=== PATIENT | male | born 1965 | race Caucasian/White ===

== ENCOUNTER 2018-09-18 07:16 | Day surgery (SDC) | payer BC ==
[~2018-09-18 07:16] MED LIST: Lactated Ringers 1,000 ML IV SCH; ceFAZolin 2 GM in Premix Bag 1 BAG IV ONE
[2018-09-18] MEDS ORDERED: Midazolam 1 MG/ML 2 ML SDV IV ONE (07:17)
[2018-09-18] MEDS ORDERED: Propofol 200 MG/20 ML SDV IV ONE (07:17)
[2018-09-18] MEDS ORDERED: Ondansetron 4 MG/2 ML SDV IVPUSH ONE (07:17)
[2018-09-18] MEDS ORDERED: Lidocaine 1% PF 2 ML SDV INJECT ONE (07:17)
[2018-09-18] MEDS ORDERED: Neostigmine Methylsulfate 10 MG/10 ML MDV IVPUSH ONE (07:17)
[2018-09-18] MEDS ORDERED: Ropivacaine 0.5% 5 MG/ML 30 ML SDV INJECT ONE (07:17)
[2018-09-18] MEDS ORDERED: Lactated Ringers 1,000 ML IV ONE (07:17)
[2018-09-18] MEDS ORDERED: Lidocaine 2% 100 MG/5 ML Syringe IVPUSH ONE (07:17)
[2018-09-18] MEDS ORDERED: Ketorolac 30 MG/ML SDV IVPUSH ONE (07:17)
[2018-09-18] MEDS ORDERED: Glycopyrrolate 0.2 MG/ML 5 ML MDV IV ONE (07:17)
[2018-09-18] MEDS ORDERED: Rocuronium 100 MG/10 ML MDV IV ONE (07:17)
[2018-09-18] MEDS ORDERED: fentaNYL 100 MCG/2 ML SDV IV ONE (07:17)
[2018-09-18] MEDS ORDERED: Lactated Ringers 1,000 ML IV SCH (07:30)
[2018-09-18] MEDS ORDERED: ceFAZolin 2 GM in Premix Bag 1 BAG IV ONE (09:00)
[2018-09-18] MEDS ORDERED: Bupivacaine 0.5%/EPINEPHrine 1:200,000 50 ML MDV INJECT ONE (09:37)
[2018-09-18] MEDS ORDERED: HYDROmorphone 2 MG/ML SDV IV ONE (11:26)
[2018-09-18] MEDS ORDERED: Dexamethasone 4 MG/ML 5 ML MDV IVPUSH ONE (11:26)
--- NOTE | 2018-09-18 12:36 | PCM.SN ---
- Free Text/Narrative Note: ANESTHESIA PAIN SERVICE Date: 09/18/2018 Time: 08 to 0850 Preoperative Dx: Left Shoulder Rotator Cuff Tear Postoperative Rx: Left Shoulder Arthroscopy with Debridement, Open Rotator Cuff Repair Surgeon requests postoperative pain control for this patient. Procedure: Left Interscalene Nerve Block [ISNB] with Ultrasound [U/S] Guidance. Risks and benefits discussed with the patient and sister including block failure , neck discomfort, and Georgiana's Syndrome. All questions answered and a consent was obtained. Monitors: NIBP, HR, I.V. and SpO2. O2 per a nasal cannula at 2L/Min applied. Sedation: Versed 2 mg IV given and the patient was arousable / orientated throughout the procedure. The patient was supine with the HOB elevated 45 degrees. A pre-procedure U/S scan was down locating the left Subclavian Artery and Brachial Plexus with scanning up the neck for the Brachial Plexus chain. Using aseptic technique for the procedure, the neck and shoulder were prepped using ChloraPrep swab and allowed to dry. Using the U/S, I located the needle insertion site and infiltrated it with 2 ml's of 1% Lidocaine plain using a 30 G needle. I then inserted a 22 G 2 inch Stimuplex Ultra 360 Insulated Echogenic Needle with direct U/S visualization. The nerve stimulator was turned on but had an error message. Under U/s guidance, I continued the needle insertion to the plexus and the patient stated he had "Zing's down into his fingers". I pulled back very slightly [resolved] and with divided doses totaling 20 ml's of .5% Naropin , it was injected under direct U/S visualization without patient complaints. No toxicity Sx noted. The patient tolerated this well and stated that his arm "was not there". For pictures please see the Radiology PACS system. Ghassan Lopez CRNA [facility]
[2018-09-18 13:02] VITALS: BP 137/82
--- NOTE | 2018-09-18 13:28 | OR ---
DATE OF OPERATION: 09/18/2018 SURGEON: Hiren Almaguer DO PREOPERATIVE DIAGNOSES: 1. Left shoulder rotator cuff tear. 2. Shoulder impingement. 3. Left shoulder pain. POSTOPERATIVE DIAGNOSES: 1. Left shoulder rotator cuff tear. 2. Shoulder impingement. 3. Left shoulder pain. PROCEDURES PERFORMED: 1. Left shoulder arthroscopy with subacromial decompression. 2. Left mini-open rotator cuff repair, acute. HARD ROCK DRILL OPERATOR: Slitter Operator: Yanni Redd NP. Nurse practitioner, Yanni Redd NP, played an essential role in assisting in this case, helping to position the patient, retract structures as needed, as well as suturing and cutting sutures as indicated. Her presence improved patient's safety and decreased operative time. ANESTHESIA: General endotracheal intubation. FLUID: Lactated Ringer's solution. ESTIMATED BLOOD LOSS: Less than 25 mL. COMPLICATIONS: None. SPECIMEN: None. DISCHARGE DISPOSITION: Stable to PACU. INDICATION FOR THE PROCEDURE: The patient was seen preoperatively in the clinic. He had failed nonoperative treatment for rotator cuff arthropathy and rotator cuff tear. Preoperative imaging confirmed the above-mentioned diagnosis on MRI. Risks and benefits of the procedure were explained to the patient and informed consent was obtained. DETAILS OF PROCEDURE: The patient was seen preoperatively by myself and the Anesthesia staff in the preoperative holding area, where the operative site was marked. He was brought to the operative suite by Anesthesia staff, where a left interscalene block was placed. He also had general anesthesia. All extremities were found to be well padded. He was placed into a beach-chair position with the neck slightly flexed. The left upper extremity was then prepped and draped in a sterile manner. Time-out was called identifying the correct patient, the correct procedure, the correct site, and that antibiotics had been begun within appropriate period of time. A posterior portal was first made using a #11 blade. The trocar was inserted into the glenohumeral joint. The biceps tendon appeared to be in good repair. The glenoid labrum appeared to have a Caesar complex. I did go through an anterior portal, which was first done with a spinal needle and then used the shaver and cautery unit to clean up any synovium. We then entered the subacromial space and performed a bursectomy. I then performed a subacromial decompression using the shaver ablation unit and bur. After this had been accomplished, I then removed my instruments from the shoulder. As much fluid as I could express from the shoulder was then expressed. I then focused on my mini- open rotator cuff repair. A saber incision was made just starting anterior to 1 cm distal to the anterior acromion and then going caudal approximately 4 cm down through the subcutaneous layer. I then controlled any bleeding with Bovie electrocautery and then used a Ray-Sonali to delineate the raphe between the anterior and middle deltoids. After this had been accomplished, I then split the deltoid to the raphe and then I could see the bursa. I then used Inge and pickups and removed the bursa over the rotator cuff area. The humeral head was visualized. The supraspinatus had torn primarily just proximal to the footprint, so there was an area of the supraspinatus and infraspinatus that was actually still attached, but then this had broken off from the main tendon, which was retracted proximally. I then grabbed the retracted tendon with a Temi and made sure that I could retract back to its appropriate position. I then placed two anchors with four strands each and then used a free needle to go through the posterior and anterior portion of the detached rotator cuff. After this had been accomplished, I placed two distal anchors and then brought two strands from both the anterior and posterior anchors and then placed a second distal anchor anteriorly and then placed four more strands for that. These strands were then tightened and then cut. This appeared to have good fixation and good range of motion. After this had been accomplished, I copiously irrigated with Betadine infused irrigation and then closed the deltoid with a running #1 STRATAFIX and then irrigated again and closed the subcutaneous layer with a 2-0 Vicryl running suture followed by skin walt. I also closed the portals with skin walt. We then applied Betadine-soaked Adaptic as well as a sterile dressing and tape, and then placed the left upper extremity in a sling. The patient was then allowed to awaken from general anesthesia and taken to the PACU in a stable condition. /[id number] BS/SHERMANL
== END 2018-09-18 13:24 | disposition home or self-care (01) ==
LOC: FB.SDS 07:16
PROVIDERS: ATTEND Orthopaedic Surgery
DX: M75.102 Unspecified rotator cuff tear or rupture of left shoulder, not specified as traumatic (principal); M25.812 Other specified joint disorders, left shoulder; F17.210 Nicotine dependence, cigarettes, uncomplicated; K21.9 Gastro-esophageal reflux disease without esophagitis; Z79.899 Other long term (current) drug therapy
CPT/HCPCS: 23410; 64415; J0690; J1100; J1170; J1885; J2001; J2250; J2405; J2704; J2710; J2795; J3010; J3490; J7120